=== PATIENT | male | born 1980 | race Caucasian/White ===

== ENCOUNTER 2017-10-11 09:47 | Emergency (ER) | payer SELFPAY ==
[2017-10-11 09:58] VITALS: BP 169/120
[2017-10-11] MEDS ORDERED: HYDROmorphone 0.5 MG/0.5 ML SYRINGE IVPUSH STA (11:11)
[2017-10-11] MEDS ORDERED: Ondansetron 4 MG/2 ML SDV IVPUSH ONE (11:12)
[2017-10-11] MEDS ORDERED: Sodium Chloride 0.9% 1,000 ML IV SCH (11:15)
[2017-10-11] MEDS ORDERED: OCTREOTIDE IV SCH (12:00)
[2017-10-11] MEDS ORDERED: SODIUM CHLORIDE 0.9% IV SCH (12:00)
[2017-10-11] MEDS ORDERED: Sodium Chloride 0.9% 10 ML Syringe FLUSH PRN (12:08)
[2017-10-11] MEDS ORDERED: Iopamidol 612 MG/ML 150 ML Bottle IVPUSH ONE (12:08)
[2017-10-11] MEDS ORDERED: Pantoprazole 40 MG Vial IVPUSH STA (12:14)
[2017-10-11] MEDS ORDERED: Etomidate 2 MG/ML 20 ML SDV IVPUSH ONE (12:15)
[2017-10-11] MEDS ORDERED: Succinylcholine 200 MG/10 ML MDV ONE (12:15)
[2017-10-11] MEDS ORDERED: Pantoprazole 80 MG in Sodium Chloride 0.9% 100 ML IV SCH (12:15)
[2017-10-11] MEDS ORDERED: Octreotide 50 MCG/1 ML Amp SUBCUT ONE (12:17)
--- NOTE | 2017-10-11 12:24 | EDM.PDOC ---
ED HPI GENERAL MEDICAL PROBLEM - General Chief Complaint: Abdominal Pain Stated Complaint: ABDOMINAL PAIN Time Seen by Provider: 10/11/17 10:32 Source of Information: Reports: Patient History Limitations: Reports: No Limitations - History of Present Illness INITIAL COMMENTS - FREE TEXT/NARRATIVE: The patient states that he developed sharp left upper quadrant abdominal pain this morning. It radiates through to his mid-back. It is constant, and the patient has not identified any modifiers. He denies any associated nausea, vomiting, constipation, or diarrhea. No recent fever. The patient states that he has had similar symptoms approximately 12 times over the past 5 years. He states that he has been previously diagnosed with a pancreatic pseudocyst. Review of prior medical records from [facility] dated 08/02/[address] scan of the abdomen and pelvis with contrast found mild inflammation and edema of the pancreatic tail, extending along the inferior margin of the spleen, along with a 7.4 x 6.3 x 7.3 cm thick-walled cyst with mild dependent debris interposed between the tail of the pancreas and the stomach, most consistent with a pancreatic pseudocyst. Of note, at the time, his lipase was only 291. The patient acknowledges that he has a history of alcohol abuse, but states that his last drink was about 2 months ago. The patient does not have a PCP. mid-abdominal Pain Score (Numeric/FACES): 10 - Related Data Allergies Allergy/AdvReac Type Severity Reaction Status Date / Time No Known Allergies Allergy Verified 10/11/17 09:58 Home Meds: Home Meds Lisinopril 20 mg PO DAILY 08/07/16 [History] Past Medical History Cardiovascular History: Reports: Hypertension Gastrointestinal History: Reports: Pancreatitis (with pancreatic pseudocyst) - Infectious Disease History Infectious Disease History: Reports: Chicken Pox Social & Family History - Family History Family Medical History: Noncontributory - Tobacco Use Smoking Status *Q: Current Every Day Smoker Years of Tobacco use: 22 Packs/Tins Daily: 1.5 - Caffeine Use Caffeine Use: Reports: Coffee - Alcohol Use Alcohol Use History: Yes Number of Drinks Per Day Comment: History of alcoholism Date/Time of Last Drink Comment: last drink around July 2017 Alcohol Use in Last Twelve Months: Yes - Recreational Drug Use Recreational Drug Use: No - Living Situation & Occupation Living situation: Reports: Single, Alone 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 ED EXAM, GI/ABD - Physical Exam Exam: See Below Exam Limited By: No Limitations General Appearance: Alert, WD/WN, Mild Distress (Appears uncomfortable) Eyes: Bilateral: Normal Appearance, EOMI Ears: Normal External Exam, Hearing Grossly Normal Nose: Normal Inspection, No Blood Throat/Mouth: Normal Inspection, Normal Lips, Normal Teeth, Normal Voice, No Airway Compromise Head: Atraumatic, Normocephalic Neck: Normal Inspection, Full Range of Motion Respiratory/Chest: No Respiratory Distress, Lungs Clear, Normal Breath Sounds, No Accessory Muscle Use Cardiovascular: Normal Peripheral Pulses, Regular Rate, Rhythm, No Gallop, No JVD, No Murmur, No Rub GI/Abdominal Exam: Normal Bowel Sounds, Soft, No Organomegaly, No Distention, No Abnormal Bruit, No Mass, Tender (Left upper quadrant only. Essentially nontender elsewhere.) (Male) Exam: Deferred Rectal (Males) Exam: Deferred Back Exam: Normal Inspection, Full Range of Motion, CVA Tenderness (L) (slight) . No: CVA Tenderness (R) Extremities: Normal Inspection, Normal Range of Motion, No Pedal Edema, Normal Capillary Refill Neurological: Alert, Oriented, Normal Cognition, No Motor/Sensory Deficits Psychiatric: Normal Affect Skin Exam: Warm, Dry, Intact, Normal Color, No Rash Endotracheal Intubation - Endotracheal Intubation Time of Intubation: 12:44 ET Intubation Indication: Airway Protection Preparation: Suction, Balloon Tested, BVM Set Up, Difficult Airway Equip Pre-Oxygenation: Assisted with BVM, 100% FiO2 Anesthesia Meds: Etomidate Placement: Orotracheal, Cuffed, Uncomplicated Placement Cords Visualized: Yes, Grade 2 ETT Size In mm: 8.0 Number of Attempts: 1 Confirmed By: CO2 Indicator, Bilateral Breath Sounds, Chest Xray Tube Secured By: By RT Course - Vital Signs Last Recorded V/S: Last Vital Signs Temp 36.9 C 10/11/17 09:50 Pulse 55 L 10/11/17 09:50 Resp 18 10/11/17 09:50 BP 169/120 H 10/11/17 09:50 Pulse Ox 100 10/11/17 09:50 - Orders/Labs/Meds Orders: Active Orders 24 hr Category Date Time Status Chest 1V Frontal [CR] Routine Exams 10/11/17 12:57 Taken PATIENT RETYPE [BBK] Stat Lab 10/11/17 12:40 Results RED BLOOD CELLS APH1 LR [BBK] Stat Lab 10/11/17 12:40 Results RED BLOOD CELLS LP [BBK] Stat Lab 10/11/17 12:40 Results TYPE AND SCREEN [BBK] Stat Lab 10/11/17 12:40 Results UA W/MICROSCOPIC [URIN] Stat Lab 10/11/17 13:35 Ordered Norepinephrine [Levophed] 4 mg Med 10/11/17 12:30 Active Dextrose 5% in Water 246 ml IV TITRATE Octreotide [SandoSTATIN] 250 mcg Med 10/11/17 22:48 Active Sodium Chloride 0.9% [Normal Saline] 245 ml IV Q10H Pantoprazole [ProTONIX IV] 80 mg Med 10/11/17 12:15 Active Sodium Chloride 0.9% [Normal Saline] 100 ml IV Q10H Sodium Chloride 0.9% [Normal Saline] 1,000 ml Med 10/11/17 11:15 Active IV ASDIRECTED Sodium Chloride 0.9% [Saline Flush] Med 10/11/17 12:08 Active 10 ml FLUSH ONETIME PRN NG [Nasogastric Orogastric Tube Insertion] [OM.PC] Oth 10/11/17 12:13 Ordered Routine Transfuse PRBC [Transfuse Red Blood Cells] [COMM] Stat Oth 10/11/17 12:27 Ordered Medication Orders Sodium Chloride (Normal Saline) 1,000 mls @ 150 mls/hr IV ASDIRECTED GAETANO Last Admin: 10/11/17 11:24 Dose: 150 mls/hr Pantoprazole Sodium 80 mg/ (Sodium Chloride) 100 mls @ 10 mls/hr IV Q10H GAETANO PRN Reason: 8 MG/HR Norepinephrine Bitartrate 4 mg (/ Dextrose/Water) 250 mls @ 37.5 mls/hr IV TITRATE GAETANO; 10 MCG/MIN PRN Reason: Protocol Octreotide Acetate 250 mcg/ (Sodium Chloride) 250 mls @ 50 mls/hr IV Q10H GAETANO PRN Reason: 50 MCG/HR Sodium Chloride (Saline Flush) 10 ml FLUSH ONETIME PRN PRN Reason: IV FLUSH Labs: Laboratory Tests 10/11/17 10/11/17 10/11/17 Range/Units 10:10 10:10 12:40 WBC 15.16 H (4.23-9.07) K/mm3 RBC 4.52 L (4.63-6.08) M/mm3 Hgb 14.0 (13.7-17.5) gm/L Hct 40.8 (40.1-51.0) % MCV 90.3 (79.0-92.2) fl MCH 31.0 (25.7-32.2) pg MCHC 34.3 (32.2-35.5) g/dl RDW Std Deviation 43.2 (35.1-43.9) fL Plt Count 217 (163-337) K/mm3 MPV 9.6 (9.4-12.3) fl Neut % (Auto) 79.1 H (34.0-67.9) % Lymph % (Auto) 11.4 L (21.8-53.1) % [place] % (Auto) 8.5 (5.3-12.2) % Eos % (Auto) 0.6 L (0.8-7.0) Baso % (Auto) 0.1 (0.1-1.2) % Neut # (Auto) 11.98 H (1.78-5.38) K/mm3 Lymph # (Auto) 1.73 (1.32-3.57) K/mm3 [place] # (Auto) 1.29 H (0.30-0.82) K/mm3 Eos # (Auto) 0.09 (0.04-0.54) K/mm3 Baso # (Auto) 0.02 (0.01-0.08) K/mm3 Sodium 137 (136-145) mEq/L Potassium 3.4 L (3.5-5.1) mEq/L Chloride 99 (98-107) mEq/L Carbon Dioxide 26 (21-32) mEq/L Anion Gap 15.4 H (5-15) BUN 16 (7-18) mg/dL Creatinine 0.8 (0.7-1.3) mg/dL Est Cr Clr Drug Dosing 134.65 mL/min Estimated GFR (MDRD) > 60 (>60) mL/min BUN/Creatinine Ratio 20.0 H (14-18) Glucose 151 H (74-106) mg/dL Calcium 9.4 (8.5-10.1) mg/dL Total Bilirubin 0.5 (0.2-1.0) mg/dL AST 21 (15-37) U/L ALT 33 (16-63) U/L Alkaline Phosphatase 90 (46-116) U/L C-Reactive Protein < 0.2 (<1.0) mg/dL Total Protein 7.1 (6.4-8.2) g/dl Albumin 4.0 (3.4-5.0) g/dl Globulin 3.1 gm/dL Albumin/Globulin Ratio 1.3 (1-2) Amylase 450 H (25-115) U/L Lipase 1330 H (73-393) U/L Blood Type A POSITIVE Gel Antibody Screen Negative Crossmatch See Detail Meds: Medications Generic Name Dose Route Start Last Admin Trade Name Robertoq PRN Reason Stop Dose Admin Sodium Chloride 1,000 mls @ 150 mls/hr 10/11/17 11:15 10/11/17 11:24 Normal Saline IV 150 mls/hr ASDIRECTED GAETANO Administration Pantoprazole Sodium 80 mg/ 100 mls @ 10 mls/hr 10/11/17 12:15 Sodium Chloride IV Q10H GAETANO 8 MG/HR Norepinephrine Bitartrate 4 mg 250 mls @ 37.5 mls/hr 10/11/17 12:30 / Dextrose/Water IV TITRATE GAETANO Protocol 10 MCG/MIN Octreotide Acetate 250 mcg/ 250 mls @ 50 mls/hr 10/11/17 22:48 Sodium Chloride IV Q10H GAETANO 50 MCG/HR Sodium Chloride 10 ml 10/11/17 12:08 Saline Flush FLUSH ONETIME PRN IV FLUSH Discontinued Medications Generic Name Dose Route Start Last Admin Trade Name Robertoq PRN Reason Stop Dose Admin Hydromorphone HCl 1 mg 10/11/17 11:11 10/11/17 11:24 Dilaudid IVPUSH 10/11/17 11:12 1 mg ONETIME STA Administration Octreotide Acetate 500 mcg/ 500 mls @ 50 mls/hr 10/11/17 12:30 Sodium Chloride IV Q10H GAETANO 50 MCG/HR Octreotide Acetate 250 mcg/ 255 mls @ 51 mls/hr 10/11/17 12:48 Sodium Chloride IV Q10H GAETANO 50 MCG/HR Iopamidol 125 ml 10/11/17 12:08 Isovue-300 (61%) IVPUSH 10/11/17 12:09 ONETIME ONE Octreotide Acetate 50 mcg 10/11/17 12:17 Sandostatin SUBCUT 10/11/17 12:18 ONETIME ONE Ondansetron HCl 4 mg 10/11/17 11:12 10/11/17 11:24 Zofran IVPUSH 10/11/17 11:13 4 mg ONETIME ONE Administration Pantoprazole Sodium 80 mg 10/11/17 12:14 10/11/17 12:28 Protonix Iv IVPUSH 10/11/17 12:15 80 mg ONETIME STA Administration - Re-Assessments/Exams Free Text/Narrative Re-Assessment/Exam: 10/11/17 12:21 Notified by Mela ORTEGA that the patient vomited approximate 500 mL blood around 12 :05, and his blood pressure has since dropped to 71/52 with a HR of 123. The nurse gave a IV fluid bolus. The patient did not undergo the CT scan of his abdomen and pelvis. The concern is that the patient has esophageal varices that are bleeding. An NG tube has been ordered. I have ordered Protonix 80 mg IVP and a Protonix drip at 8 mg/hr. I have ordered Sandostatin 50 g SQ and a Sandostatin drip at 50 g/hr. I have ordered a Levophed drip at 10 mcg/min. 10/11/17 13:18 The patient received the Protonix and Sandostatin. 2 units PRBC's were ordered. The patient's blood pressure improved following IV fluid bolus, therefore the Levophed was not started. Case discussed with [facility] at 12:22. Case discussed with Dr. Livingston, ED physician at [facility], at 12:28. He accepts the patient for transfer to their ED. He recommended we place a Gertrude tube, if available. He recommended FFP, if available. The patient will transfer by helicopter. Anticipating Flight requirement of airway protection, we elected to intubate the patient. Anesthesia was called. The patient was given etomidate and succinylcholine per anesthesia. He was then intubated with an 8.0 ETT 224 cm at the incisors, using a Mac 3 blade, without difficulty. A Gertrude tube was then placed via the right nostril. Post-procedure chest radiograph finds the ET tube tip approximately 3 cm above the arabella. The Gertrude tube is in the esophagus to the GE junction. Fresh blood continued to be suctioned from the distal lumen of the Gertrude tube. 2 additional units of PRBC's were ordered. Unfortunately, FFP takes 30-45 minutes to thaw. The patient was subsequently given transexamic acid. He remains hypotensive with most recent BP 94/69, HR 137. Levophed will be started. 10/11/17 13:49 Status report called to Dr. Livingston at 13:47. Departure - Departure Time of Disposition: 12:24 Disposition: DC/Tfer to [facility] 02 Condition: Critical Clinical Impression: Upper gastrointestinal hemorrhage, Hypovolemic shock, Pancreatitis - Discharge Information - My Orders Last 24 Hours: My Active Orders 10/11/17 11:15 Sodium Chloride 0.9% [Normal Saline] 1,000 ml IV ASDIRECTED 10/11/17 12:08 Sodium Chloride 0.9% [Saline Flush] 10 ml FLUSH ONETIME PRN 10/11/17 12:13 NG [Nasogastric Orogastric Tube Insertion] [OM.PC] Routine 10/11/17 12:15 Pantoprazole [ProTONIX IV] 80 mg Sodium Chloride 0.9% [Normal Saline] 100 ml IV Q10H 10/11/17 12:27 Transfuse PRBC [Transfuse Red Blood Cells] [COMM] Stat 10/11/17 12:30 Norepinephrine [Levophed] 4 mg Dextrose 5% in Water 246 ml IV TITRATE 10/11/17 12:40 PATIENT RETYPE [BBK] Stat RED BLOOD CELLS APH1 LR [BBK] Stat RED BLOOD CELLS LP [BBK] Stat TYPE AND SCREEN [BBK] Stat 10/11/17 12:57 Chest 1V Frontal [CR] Routine 10/11/17 13:35 UA W/MICROSCOPIC [URIN] Stat 10/11/17 22:48 Octreotide [SandoSTATIN] 250 mcg Sodium Chloride 0.9% [Normal Saline] 245 ml IV Q10H - Assessment/Plan Last 24 Hours: My Active Orders 10/11/17 11:15 Sodium Chloride 0.9% [Normal Saline] 1,000 ml IV ASDIRECTED 10/11/17 12:08 Sodium Chloride 0.9% [Saline Flush] 10 ml FLUSH ONETIME PRN 10/11/17 12:13 NG [Nasogastric Orogastric Tube Insertion] [OM.PC] Routine 10/11/17 12:15 Pantoprazole [ProTONIX IV] 80 mg Sodium Chloride 0.9% [Normal Saline] 100 ml IV Q10H 10/11/17 12:27 Transfuse PRBC [Transfuse Red Blood Cells] [COMM] Stat 10/11/17 12:30 Norepinephrine [Levophed] 4 mg Dextrose 5% in Water 246 ml IV TITRATE 10/11/17 12:40 PATIENT RETYPE [BBK] Stat RED BLOOD CELLS APH1 LR [BBK] Stat RED BLOOD CELLS LP [BBK] Stat TYPE AND SCREEN [BBK] Stat 10/11/17 12:57 Chest 1V Frontal [CR] Routine 10/11/17 13:35 UA W/MICROSCOPIC [URIN] Stat 10/11/17 22:48 Octreotide [SandoSTATIN] 250 mcg Sodium Chloride 0.9% [Normal Saline] 245 ml IV Q10H
[2017-10-11] MEDS ORDERED: Octreotide 500 MCG in Sodium Chloride 0.9% 499 ML IV SCH (12:30)
[2017-10-11] MEDS ORDERED: Norepinephrine 4 MG in Dextrose 5% in Water 246 ML IV SCH ×2 (12:30)
[2017-10-11] MEDS ORDERED: Octreotide 250 MCG in Sodium Chloride 0.9% 250 ML IV SCH (12:48)
--- NOTE | 2017-10-11 13:18 | CR ---
Chest: Portable view of the chest was obtained. Comparison: No previous chest x-ray. Nasogastric tube is seen. Tip lies within proximal body of the stomach. Heart size and mediastinum are normal. Lungs are clear. Bony structures are grossly intact. Impression: 1. Tip of nasogastric tube within the proximal most body of the stomach. 2. Nothing acute is seen on chest x-ray. Diagnostic code #2
--- NOTE | 2017-10-11 13:40 | PCM.SN ---
- Free Text/Narrative Note: 1235 called to ER for assistance with emergency intubation and placement of Leti Tube. Managed airway, assist Dr. Steward with OETTube placement 24 at teeth bilateral breath sounds equal. Leti tube placed in right nare 30 cm small balloon inflated and pulled back snug big balloon inflated out of trauma bay 2 at 1303
--- NOTE | 2017-10-11 15:02 | CR ---
Chest: Frontal view of the chest was obtained utilizing portable technique. Comparison: Prior chest x-ray performed earlier on same day (12:24 PM). Nasogastric tube has been removed and replaced with a a different tube with tip lying slightly above the gastroesophageal junction. Endotracheal tube is seen tip lying at the level of the lower clavicles. Lungs remain clear. Heart size and mediastinum are normal. Impression: 1. Nasogastric tube has been replaced with an additional tube which lies above the gastroesophageal junction. 2. Tip of endotracheal tube at the lower level of clavicles in satisfactory position. Diagnostic code #3 MTDD
== END 2017-10-11 13:50 ==
LOC: JD.ED 09:47
DX: K92.2 Gastrointestinal hemorrhage, unspecified (principal); R57.1 Hypovolemic shock; K85.90 Acute pancreatitis without necrosis or infection, unspecified; I10 Essential (primary) hypertension; F17.210 Nicotine dependence, cigarettes, uncomplicated; Z79.899 Other long term (current) drug therapy
CPT/HCPCS: 31500; 36415; 51702; 71045; 80053; 81001; 82150; 83690; 85025; 86140; 86850; 86900; 86901; 86922; 96361; 96365; 96372; 96374; 96375; 99291; 99292; C9113; J0330; J1170; J2354; J2405; J7040; J7050; J7060; P9016

== ENCOUNTER 2018-09-09 00:18 | Emergency (ER) | payer MEDICAID ==
[2018-09-09 00:28] VITALS: BP 137/99
[2018-09-09] MEDS ORDERED: Sodium Chloride 0.9% 10 ML Syringe FLUSH PRN (00:34)
[2018-09-09] MEDS ORDERED: Sodium Chloride 0.9% 500 ML IV ONE (00:45)
[2018-09-09] MEDS ORDERED: Diltiazem 50 MG/10 ML SDV IVPUSH ONE (00:46)
--- NOTE | 2018-09-09 01:10 | EDM.PDOC ---
ED HPI GENERAL MEDICAL PROBLEM - General Chief Complaint: Cardiovascular Problem Stated Complaint: RAPID HEART BEAT Time Seen by Provider: 09/09/18 00:33 Source of Information: Reports: Patient, RN Notes Reviewed - History of Present Illness INITIAL COMMENTS - FREE TEXT/NARRATIVE: 38-year-old male comes in with palpitations. He states this started yesterday and has just been present off-and-on. At a few episodes where he felt more rapid palpitation this evening so decided to come in and have this checked out. He states he did have a similar episode about 3 years ago where they "shocked his heart". He does take medication for hypertension. He used to drink quite heavily but now sounds like more to one or 2 drinks a day at most. He also does smoke. - Related Data Allergies Allergy/AdvReac Type Severity Reaction Status Date / Time No Known Allergies Allergy Verified 09/09/18 00:28 Home Meds: Home Meds Lisinopril 20 mg PO DAILY 08/07/16 [History] Metoprolol Tartrate [Lopressor] 25 tab PO BID 09/09/18 [History] Past Medical History - Past Health History Medical/Surgical History: Denies Medical/Surgical History HEENT History: Reports: None Cardiovascular History: Reports: Hypertension Respiratory History: Reports: None Gastrointestinal History: Reports: Pancreatitis Other Gastrointestinal History: states cyst on pancreas Genitourinary History: Reports: None Musculoskeletal History: Reports: None Neurological History: Reports: None Psychiatric History: Reports: None Endocrine/Metabolic History: Reports: None Hematologic History: Reports: None Immunologic History: Reports: None Oncologic (Cancer) History: Reports: None Dermatologic History: Reports: None - Infectious Disease History Infectious Disease History: Reports: Chicken Pox - Past Surgical History GI Surgical History: Reports: Other (See Below) Other GI Surgeries/Procedures: removal of spleen Social & Family History - Family History Family Medical History: Noncontributory - Tobacco Use Smoking Status *Q: Current Every Day Smoker Years of Tobacco use: 25 Packs/Tins Daily: 1 Used Tobacco, but Quit: No - Caffeine Use Caffeine Use: Reports: Coffee - Recreational Drug Use Recreational Drug Use: No - Living Situation & Occupation Living situation: Reports: Single, Alone 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) ED ROS GENERAL - Review of Systems Review Of Systems: See Below Constitutional: Denies: Fever, Chills, Diaphoresis HEENT: Reports: No Symptoms Respiratory: Denies: Shortness of Breath, Pleuritic Chest Pain, Cough Cardiovascular: Denies: Chest Pain GI/Abdominal: Denies: Abdominal Pain, Nausea, Vomiting Musculoskeletal: Denies: Shoulder Pain, Arm Pain, Back Pain Skin: Reports: No Symptoms Neurological: Denies: Dizziness, Numbness, Tingling, Trouble Speaking, Difficulty Walking, Weakness ED EXAM, GENERAL - Physical Exam Exam: See Below General Appearance: Alert, No Apparent Distress Eye Exam: Bilateral Eye: PERRL Throat/Mouth: Normal Inspection Head: Atraumatic. No: Facial Swelling Neck: Supple, Full Range of Motion Respiratory/Chest: No Respiratory Distress, Lungs Clear, Normal Breath Sounds Cardiovascular: Tachycardia, Irregularly Irregular GI/Abdominal: Soft, Non-Tender Extremities: Normal Inspection. No: Pedal Edema, Leg Pain Neurological: Alert, Oriented, No Motor/Sensory Deficits Skin Exam: Warm, Dry, Normal Color EKG INTERPRETATION EKG Date: 09/09/18 Rhythm: A-Flutter Rate (Beats/Min): 111 [place]: Normal P-Wave: Present QRS: Normal ST-T: Normal Course - Vital Signs Last Recorded V/S: Last Vital Signs Temp 98.1 F 09/09/18 00:24 Pulse 106 H 09/09/18 00:24 Resp 15 09/09/18 00:24 BP 137/99 H 09/09/18 00:24 Pulse Ox 100 09/09/18 00:24 - Orders/Labs/Meds Orders: Active Orders 24 hr Category Date Time Status EKG 12 Lead [EKG Documentation Completion] [RC] STAT Care 09/09/18 00:35 Active Peripheral IV Care [RC] . DIRECTED Care 09/09/18 00:35 Active Chest 1V Frontal [CR] Stat Exams 09/09/18 00:34 Taken Sodium Chloride 0.9% [Saline Flush] Med 09/09/18 00:34 Active 10 ml FLUSH ASDIRECTED PRN Peripheral IV Insertion Adult [OM.PC] Stat Oth 09/09/18 00:35 Ordered Medication Orders Sodium Chloride (Saline Flush) 10 ml FLUSH ASDIRECTED PRN PRN Reason: Keep Vein Open Last Admin: 09/09/18 00:55 Dose: 10 ml Labs: Laboratory Tests 09/09/18 09/09/18 Range/Units 00:32 00:32 WBC 12.92 H (4.23-9.07) K/mm3 RBC 4.33 L (4.63-6.08) M/mm3 Hgb 13.7 (13.7-17.5) gm/L Hct 39.9 L (40.1-51.0) % MCV 92.1 (79.0-92.2) fl MCH 31.6 (25.7-32.2) pg MCHC 34.3 (32.2-35.5) g/dl RDW Std Deviation 45.4 H (35.1-43.9) fL Plt Count 341 H (163-337) K/mm3 MPV 9.9 (9.4-12.3) fl Neutrophils % (Manual) 46 (40-60) % Band Neutrophils % 0 (0-10) % Lymphocytes % (Manual) 46 H (20-40) % Atypical Lymphs % 0 % Monocytes % (Manual) 4 (2-10) % Eosinophils % (Manual) 4 (0.8-7.0) % Basophils % (Manual) 0 L (0.2-1.2) Platelet Estimate Adequate Plt Morphology Comment Normal Acanthocytes (Spur) Rare RBC Morph Comment Not Reportable Sodium 142 (136-145) mEq/L Potassium 3.4 L (3.5-5.1) mEq/L Chloride 107 (98-107) mEq/L Carbon Dioxide 26 (21-32) mEq/L Anion Gap 12.4 (5-15) BUN 11 (7-18) mg/dL Creatinine 0.9 (0.7-1.3) mg/dL Est Cr Clr Drug Dosing 114.24 mL/min Estimated GFR (MDRD) > 60 (>60) mL/min BUN/Creatinine Ratio 12.2 L (14-18) Glucose 126 H (74-106) mg/dL Calcium 9.2 (8.5-10.1) mg/dL Total Bilirubin 0.4 (0.2-1.0) mg/dL AST 16 (15-37) U/L ALT 26 (16-63) U/L Alkaline Phosphatase 86 (46-116) U/L Total Protein 6.9 (6.4-8.2) g/dl Albumin 4.0 (3.4-5.0) g/dl Globulin 2.9 gm/dL Albumin/Globulin Ratio 1.4 (1-2) Meds: Medications Generic Name Dose Route Start Last Admin Trade Name Freq PRN Reason Stop Dose Admin Sodium Chloride 10 ml 09/09/18 00:34 09/09/18 00:55 Saline Flush FLUSH 10 ml ASDIRECTED PRN Administration Keep Vein Open Discontinued Medications Generic Name Dose Route Start Last Admin Trade Name Freq PRN Reason Stop Dose Admin Diltiazem HCl 10 mg 09/09/18 00:46 09/09/18 00:54 Cardizem IVPUSH 09/09/18 00:47 10 mg ONETIME ONE Administration Sodium Chloride 500 mls @ 999 mls/hr 09/09/18 00:45 09/09/18 00:54 Normal Saline IV 09/09/18 01:15 999 mls/hr .BOLUS ONE Administration - Re-Assessments/Exams Free Text/Narrative Re-Assessment/Exam: 09/09/18 01:32 We did give diltiazem 5 mg IV. With that he converted a few minutes ago back into sinus rhythm, rate in the 70s. Blood pressure is good. Will observe for a short period of time and make sure it holds. Departure - Departure Time of Disposition: 01:33 Disposition: Home, Self-Care 01 Condition: Fair Clinical Impression: Palpitations Atrial flutter Qualifiers: Atrial flutter type: unspecified Qualified Code(s): I48.92 - Unspecified atrial flutter Referrals: PCP,None [Primary Care Provider] - Forms: ED Department Discharge Additional Instructions: The top part of your heart was going fast, a condition we call atrial flutter. With the medication we gave IV you did convert back to what we call normal sinus rhythm. Return to ED if you do have further episodes of rapid heart rate or palpitations. Continue current meds as previously prescribed. - My Orders Last 24 Hours: My Active Orders 09/09/18 00:34 Chest 1V Frontal [CR] Stat Sodium Chloride 0.9% [Saline Flush] 10 ml FLUSH ASDIRECTED PRN 09/09/18 00:35 EKG 12 Lead [EKG Documentation Completion] [RC] STAT Peripheral IV Care [RC] . DIRECTED Peripheral IV Insertion Adult [OM.PC] Stat - Assessment/Plan Last 24 Hours: My Active Orders 09/09/18 00:34 Chest 1V Frontal [CR] Stat Sodium Chloride 0.9% [Saline Flush] 10 ml FLUSH ASDIRECTED PRN 09/09/18 00:35 EKG 12 Lead [EKG Documentation Completion] [RC] STAT Peripheral IV Care [RC] . DIRECTED Peripheral IV Insertion Adult [OM.PC] Stat
--- NOTE | 2018-09-09 06:17 | CR ---
Chest: Frontal view of the chest was obtained. Comparison: Prior chest x-ray of 10/11/17. Heart size and mediastinum are normal. Lungs are clear. Bony structures are unremarkable. Impression: 1. Nothing acute is seen on frontal chest x-ray. Diagnostic code #1
== END 2018-09-09 01:50 | disposition home or self-care (01) ==
LOC: JD.ED 00:18
DX: I48.92 Unspecified atrial flutter (principal); I10 Essential (primary) hypertension; F17.210 Nicotine dependence, cigarettes, uncomplicated
CPT/HCPCS: 36415; 71045; 80053; 85007; 85027; 93005; 96361; 96374; 99285; J3490; J7040; 93010; 99284

== ENCOUNTER 2021-10-12 06:02 | Emergency (ER) | payer BC, MEDICAID ==
[2021-10-12] MEDS ORDERED: Diltiazem 50 MG/10 ML SDV IVPUSH STA (06:35)
[2021-10-12] MEDS ORDERED: Diltiazem 100 MG in Sodium Chloride 0.9% 100 ML IV SCH (06:45)
[2021-10-12] MEDS ORDERED: Sodium Chloride 0.9% 1,000 ML IV SCH (06:45)
[2021-10-12] MEDS ORDERED: Metoprolol Tartrate 25 MG Tab PO ONE (10:19)
[2021-10-12 13:03] VITALS: BP 122/78; PULSE 80
== END 2021-10-12 12:35 | disposition home or self-care (01) ==
LOC: JD.ED 06:02
DX: I48.91 Unspecified atrial fibrillation (principal); I48.92 Unspecified atrial flutter; I10 Essential (primary) hypertension; Z72.0 Tobacco use; Z79.01 Long term (current) use of anticoagulants; Z79.899 Other long term (current) drug therapy; Z20.822 Contact with and (suspected) exposure to COVID-19
CPT/HCPCS: 36415; 71045; 80053; 80307; 83735; 84443; 84484; 85025; 85379; 85610; 85730; 87635; 93005; 96365; 96366; 99285; A9270; J3490; J7030; 93010; U0002

== ENCOUNTER 2022-08-07 16:50 | Emergency (ER) | payer BC ==
[2022-08-07 17:27] VITALS: BP 108/80; PULSE 79
== END 2022-08-07 18:49 | disposition home or self-care (01) ==
LOC: JD.ED 16:50
DX: S22.32XA Fracture of one rib, left side, initial encounter for closed fracture (principal); F17.210 Nicotine dependence, cigarettes, uncomplicated; I10 Essential (primary) hypertension; I48.91 Unspecified atrial fibrillation; W17.89XA Other fall from one level to another, initial encounter; Y99.0 Civilian activity done for income or pay
CPT/HCPCS: 71101-26-LT; 71101-LT; 99283